=== PATIENT | female | born 1970 | race Caucasian/White ===

== ENCOUNTER 2023-06-11 07:04 | Emergency (ER) | payer OTHER, SELFPAY ==
[2023-06-11 07:12] VITALS: BP 175/103; PULSE 109; RESP 16; TEMP 36.8; O2SAT 100; BMI 18.6
[2023-06-11] MEDS: TET,DIPH,PERTUSS(ACELL),VAC/PF 0.5 ML SYRINGE IM (07:45)
[2023-06-11] MEDS: PROPARACAINE 0.5% OPHTH SOL 1 DROPS EYE-LEFT (07:46)
--- NOTE | 2023-06-11 07:46 | ED_ITS ---
HPI - Eye Problem General Chief complaint: Eye Problems Stated complaint: left eye hit with a branch Time Seen by Provider: 06/11/23 07:14 Source: patient Mode of arrival: Family Vehicle Limitations: no limitations History of Present Illness HPI Narrative: This is a 52-year-old female with history of tobacco use, patient presents with left eye pain. She states she was in the left eye with a branch Friday, 2 days ago. She is had persistent pain tearing and irritation of the eye since then. She states it sort of feels like something still there still irritated it is not been getting any better but not significantly worse. She has not been having increasing swelling she would have a little swelling initially of the brow surrounding area. She states vision is a little bit more blurred. She states she normally wears glasses, she does not wear contacts she does not have her glasses on today states vision slightly different. She was not able to perform visual acuity she did not have her glasses. Patient states tearing no purulent drainage. Pain has not been rapidly worsening. Some irritation to the eye but denies severe pain. Patient states she is had 1 prior injury where she poked herself with a pool stick. Patient states otherwise no other prior injuries, no surgeries. She does any medications on her eyes. She has seen an eye doctor in the past has prescription glasses. Patient states no daily medications. Denies other major surgeries. No known drug allergies. Tetanus was updated here in the department. Does use tobacco, positive for alcohol, uses marijuana. Related Data Allergies Allergy/AdvReac Type Severity Reaction Status Date / Time No Known Drug Allergies Allergy Verified 06/11/23 07:14 Review of Systems Review of Systems ROS Unobtainable: All systems reviewed & are unremarkable except as noted in HPI and below Patient History Social History Smoking Status: Current every day smoker Smoking Status: Current every day smoker alcohol intake frequency: 3 or more drinks per day Substance Use Type: marijuana Exam Narrative Exam Narrative: GENERAL: Alert and oriented x three, female in mild distress. HEENT: Head normocephalic, atraumatic, EOMI, pupils reactive, face symmetric, moist mucous membranes NECK: Supple, full range of motion Visual acuity: Patient was unable to perform, leftward glasses at home and could not perform in general with either eye. She does no only slight blurred vision in the left compared to the right. General: no globe trauma Eyelids: normal inspection, eyelids everted for exam on left. Conjunctiva/Sclera: normal inspection Corneas: normal inspection on the right, examined with fluroscein on the left patient has irregular abrasion at the 4 o'clock position extending towards the middle of the cornea with uptake. EOM: intact, no palsy/entrapment Pupils: PERRL, normal accomadation, pupil normal Anterior Chambers: normal inspection, no hypema Posterior: normal fundoscopic on bilateral EXTREMITIES: Normal range of motion, no clubbing or edema. Neurovascularly intact NEUROLOGICAL: Cranial nerves II through XII grossly intact. Moving all extremities SKIN: Warm, dry, no petechiae, no rashes or lesions otherwise noted. Initial Vital Signs Initial Vital Signs: Vital Signs Temperature 98.3 F 06/11/23 07:12 Pulse Rate 109 H 06/11/23 07:12 Respiratory Rate 16 06/11/23 07:12 Blood Pressure 175/103 H 06/11/23 07:12 Pulse Oximetry 100 06/11/23 07:12 Oxygen Delivery Method Room Air 06/11/23 07:12 Course Orders Ordered: Discontinued Medications Diphtheria/Tetanus/Acell Pertussis (Tet,Diph,Pertuss(Acell),Vac/Pf 0.5 Ml Syringe) 0.5 ml IM .ONCE ONE Stop: 06/11/23 07:38 Last Admin: 06/11/23 07:45 Dose: 0.5 ml Documented By: BRANT Fluorescein Sodium (Fluorescein 1 Mg Strip) 1 mg EYE-LEFT NOW ONE Stop: 06/11/23 07:45 Last Admin: 06/11/23 07:47 Dose: 1 mg Documented By: BRANT Fluorescein Sodium (Fluorescein 1 Mg Strip) 1 mg EYE-RIGHT NOW ONE Stop: 06/11/23 07:49 Last Admin: 06/11/23 07:50 Dose: 1 mg Documented By: BRANT Ofloxacin (Ofloxacin 0.3% Ophth Prepack) 1 bottle MISC SEEINSTR ONE Stop: 06/11/23 07:56 Last Admin: 06/11/23 08:17 Dose: 1 drop Documented By: SCARLETT Proparacaine HCl (Proparacaine 0.5% Ophth Lana) 1 drops EYE-LEFT PRN PRN PRN Reason: Pain, Moderate (4-6) Last Admin: 06/11/23 07:46 Dose: 1 drop Documented By: BRANT Vital Signs Vital signs: Vital Signs - 8 hr 06/11/23 07:12 Temperature 98.3 F Pulse Rate 109 H Respiratory Rate 16 Blood Pressure 175/103 H Pulse Oximetry 100 Oxygen Delivery Method Room Air MDM - Eye Problem MDM Narrative Medical decision making narrative: This is a 52-year-old female who had injury to her left eye 2 days ago, she appears to have a corneal abrasion no ulceration globe appears intact. Difficult to get visual acuity she left her glasses at home so can not see very well to do visual acuity with either eye. Patient does appear to have not abrasion on examination. Placed on antibiotics it has been 2 days and has not significantly improved we will have her follow up with Ophthalmology in the next 24 hours. Discharge Plan Departure Patient Disposition: Home Clinical Impression: Corneal abrasion Instructions: DI for Corneal Abrasion Activity Restrictions/Additional Instructions: Follow-up with ophthalmology today or tomorrow. Call to set up an appointment today. Referral is included below. Use antibiotic eye drops to the left eye, 2 drops every 4 hours while awake (4 times daily). You may use cool compresses to the affected eye. Can take Tylenol to a 1000 mg and/or ibuprofen up to 800 mg every 8 hours for discomfort. Please return if you are having decreasing vision, rapidly worsening pain, purulent drainage, new swelling of your face, eyelids or eye or other new or co ncerning changes. Referrals: Frankie Jones MD [Physician] - Stand Alone Forms: Patient Portal/API
[2023-06-11] MEDS: FLUORESCEIN 1 MG STRIP EYE-LEFT (07:47)
[2023-06-11] MEDS: FLUORESCEIN 1 MG STRIP EYE-RIGHT (07:50)
--- NOTE | 2023-06-11 08:10 | PC.NURSE ---
patient unable to complete visual acuity as she does not have her eye glasses.
[2023-06-11 08:16] VITALS: BP 178/101; PULSE 88; RESP 16; O2SAT 99
[2023-06-11] MEDS: OFLOXACIN 0.3% OPHTH PREPACK 1 BOTTLE MISC (08:17)
== END 2023-06-11 08:24 | disposition home or self-care (01) ==
PROVIDERS: Emergency Provider Emergency Medicine
DX: S05.02XA Injury of conjunctiva and corneal abrasion without foreign body, left eye, initial encounter (principal); W22.8XXA Striking against or struck by other objects, initial encounter; Z23 Encounter for immunization
CPT/HCPCS: 90471; 99283; 90715

== ENCOUNTER → 2025-04-23 12:40 | Outpatient (CLI) | payer SELFPAY | PROVIDERS: Visit Provider Registered Nurse | DX: R10.9 Unspecified abdominal pain (principal) | CPT/HCPCS: 87077; 87086; 87186 ==